=== PATIENT | female | born 1975 | race Caucasian/White ===

== ENCOUNTER → 2016-05-19 | Outpatient (CLI) | payer OTHER ==
[2016-05-19 14:30] LABS: MEAN CORPUSCULAR HEMOGLOBIN 27.8 pg (27.0-33.0); MEAN CORPUSCULAR HGB CONC 34.2 g/dl (32.0-36.5); MEAN CORPUSCULAR VOLUME 81.4 fl (80.0-96.0); WHITE BLOOD COUNT 5.8 K/mm3 (4.0-10.0)
[2016-05-19 14:58] LABS: ALBUMIN 3.4 GM/DL (3.2-5.2); ALKALINE PHOSPHATASE 92 U/L (45-117); ALT/SGPT 19 U/L (12-78); ANION GAP 9 MEQ/L (8-16); AST/SGOT 11 U/L (15-37); BILIRUBIN,TOTAL 0.4 MG/DL (0.2-1.0); BLOOD UREA NITROGEN 12 MG/DL (7-18); CALCIUM LEVEL 8.3 MG/DL (8.5-10.1); CARBON DIOXIDE LEVEL 27 MEQ/L (21-32); CHLORIDE LEVEL 105 MEQ/L (98-107); CHOLESTEROL LEVEL 185 MG/DL (<200); CREATININE FOR GFR 0.65 MG/DL (0.55-1.02); GLOMERULAR FILTRATION RATE > 60.0 (>60); GLUCOSE, FASTING 85 MG/DL (70-105); POTASSIUM SERUM 4.3 MEQ/L (3.5-5.1); SODIUM LEVEL 141 MEQ/L (136-145); TOTAL PROTEIN 6.8 GM/DL (6.4-8.2); TRIGLYCERIDES LEVEL 112 MG/DL (<150)
== END ==
LOC: M LAB 12:45
PROVIDERS: ATTEND Nurse Practitioner Family
DX: Z86.2 Personal history of diseases of the blood and blood-forming organs and certain disorders involving the immune mechanism (principal); E88.9 Metabolic disorder, unspecified; Z13.220 Encounter for screening for lipoid disorders; R53.81 Other malaise

== ENCOUNTER 2016-06-13 00:16 | Emergency (ER) | payer OTHER ==
[2016-06-13] MEDS ORDERED: ERYTHROMYCIN OPHTH OINT As Ordered ONE (00:38)
[2016-06-13] MEDS ORDERED: AUGMENTIN 875 MG TAB As Ordered ONE (00:38)
--- NOTE | 2016-06-13 00:46 | EDDOCDS ---
Physician Documentation [facility] Name: Fabiana Thomas Age: 40 yrs Sex: Female : 1975 Arrival Date: 06/13/2016 Time: 00:16 Bed Triage 1 Private MD: Disposition: 06/13/16 00:37 Discharged to Home/Self Care. Impression: Unspecified acute conjunctivitis, bilateral. - Condition is Stable. - Discharge Instructions: Bacterial Conjunctivitis, Eyedrops. - Prescriptions for Augmentin 875- 125 mg Oral Tablet - take 1 tablet by ORAL route every 12 hours for 10 days; 20 tablet. Erythromycin 5 mg/gram (0.5 %) Ophthalmic Ointment - apply 1 centimeter by OPHTHALMIC route 2-3 times daily for 7 days; 1 tube. - Medication Reconciliation, Local Pharmacy Hours, Work Release Form - 2 day form. - Follow up: Private Physician; When: Call to arrange an appointment; Reason: Recheck today's complaints, Continuance of care. - Problem is new. - Symptoms are unchanged. Historical: - Allergies: Bactrim (Vomit); Morphine (Nausea); - Home Meds: 1. ofloxacin 2 drops four times a day 2. methocarbamol 750 mg Oral tab 1 tab every 6 hours 3. prednisone 20 mg Oral tab 2 tabs once daily 4. naproxen 500 mg Oral tab 1 tab 2 times per day - PMHx: Chronic Back pain; conjunctivitis; - PSHx: eye surgery; Cesearean Section; Tubal ligation; - Social history: Smoking status: Patient states was never smoker of tobacco. No barriers to communication noted, The patient speaks fluent Maltese, Speaks appropriately for age. - Family history: Not pertinent. - : The pt / caregiver states he / she is not on anticoagulants. Home medication list is obtained from the patient. - Exposure Risk Screening:: None identified. 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 6 in. (167.64 cm) (R); Pain 6/10; 00:21 Body Mass Index 42.77 (120.20 kg, 167.64 cm) deisy Visual Acuity: 00:45 ; deferred by provider deisy MDM: 00:35 erythromycin Ointment 1 applic Ophthalmic once ordered. mo1 00:35 Amoxicillin-Clavulanate 875 mg 1 tabs PO once ordered. mo1 Administered Medications: 00:43 Drug: erythromycin 1 applic [erythromycin 5 mg/gram (0.5 %) eye ointment (1 applic)] deisy Route: Ophthalmic; Site: both eyes; 00:43 Drug: Amoxicillin-Clavulanate 1 tabs [amoxicillin 875 mg-potassium clavulanate 125 mg jmb tablet (1 tabs)] Route: PO; Signatures: Anil Bob PA PA mo1 Binh Zazueta RN RN deisy DAVID
--- NOTE | 2016-06-13 00:46 | EDDOCDS ---
Nurse's Notes [facility] Name: Fabiana Thomas Age: 40 yrs Sex: Female : 1975 Arrival Date: 06/13/2016 Time: 00:16 Bed Triage 1 Private MD: Diagnosis: Unspecified acute conjunctivitis, bilateral Presentation: 06/13 00:21 Presenting complaint: Patient states: Patient reports having pink eye. Patient reports jmb going to urgent care on , given eye drops that are not working. Patient reports that starting to cause swelling. Mechanism of Injury: No Mechanism of Injury. The patient denies any loss of vision. Adult Sepsis Screening: The patient does not have new or worsening altered mentation. Patient's respiratory rate is less than 22. Systolic blood pressure is greater than 100. Patient has a qSOFA score of 0- Negative Sepsis Screen. Suicide/Homicide risk assessment- the patient denies having any suicidal and/or homicidal ideations and does not present with any other emotional, behavioral or mental health complaints. Status: Patient is not a auto service mechanic or dependent. Transition of care: patient was not received from another setting of care. 00:21 Acuity: LUCRETIA Level 4 jmb 00:21 Method Of Arrival: Walkin/Carried/Asstd jmb Triage Assessment: 00:26 General: Appears in no apparent distress, Behavior is appropriate for age, cooperative. jmb Pain: Location: right eye and left eye Pain currently is 6 out of 10 on a pain scale. HIV screening NA for this visit Offered previously. Neurological: Level of Consciousness is awake, alert, obeys commands, Oriented to person, place, time, Speech is normal, Facial symmetry appears normal, Facial symmetry: tongue is midline. EENT: Eyes with exudate noted from outer aspect of conjuctiva of right eye, iris of right eye, inner aspect of conjuctiva of right eye, outer aspect of conjuctiva of left eye, iris of left eye and inner aspect of conjunctiva of left eye Sclera/Cornea are reddened in outer aspect of conjuctiva of right eye, iris of right eye, inner aspect of conjuctiva of right eye, outer aspect of conjuctiva of left eye, iris of left eye and inner aspect of conjunctiva of left eye. Respiratory: Airway is patent Respiratory effort is even, unlabored, Respiratory pattern is regular, symmetrical. Derm: Skin is pink, warm & dry. Musculoskeletal: Range of motion intact in all extremities. 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 ofloxacin 2 drops four times a day 2. methocarbamol 750 mg Oral tab 1 tab every 6 hours 3. prednisone 20 mg Oral tab 2 tabs once daily 4. naproxen 500 mg Oral tab 1 tab 2 times per day - PMHx: Chronic Back pain; conjunctivitis; - PSHx: eye surgery; Cesearean Section; Tubal ligation; - Social history: Smoking status: Patient states was never smoker of tobacco. No barriers to communication noted, The patient speaks fluent Bangladeshi, Speaks appropriately for age. - Family history: Not pertinent. - : The pt / caregiver states he / she is not on anticoagulants. Home medication list is obtained from the patient. - Exposure Risk Screening:: None identified. Screenin:43 Screening information is obtained from the patient. Fall risk: No risks identified. b Assistance ADL's: requires no assistance with activities of daily living. Abuse/DV Screen: The patient / caregiver reports he/she is: not in a situation that causes fear, pain or injury. Nutritional screening: No deficits noted. Advance Directives: Currently, there is no health care proxy. There is no active DNR order. There is no living will. There is no Power of Cooler Room Worker. home support is adequate. Assessment: 00:43 General: Patient instructed on discharge instructions. Patient asked if there were any [facility] questions regarding discharge, patient stated no. Patient signed discharge instructions. Patient discharged in stable condition. . Vital Signs: 00:21 BP 136 / 80; Pulse 75; Resp 18; Temp 98.4(O); Pulse Ox 100% on R/A; Weight 120.2 kg deisy (R); Height 5 ft. 6 in. (167.64 cm) (R); Pain 6/10; 00:21 Body Mass Index 42.77 (120.20 kg, 167.64 cm) deisy Vitals: 00:21 Log In Time: June 13, 2016 at 00:18. deisy Visual Acuity: 00:45 ; deferred by provider b ED Course: 00:18 Patient visited by Katy Fish, Reg. hs2 00:18 Patient visited by Katy Fish, Reg. hs2 00:18 Patient moved to Waiting hs2 00:23 Triage Initiated jmb 00:27 Patient moved to Triage 1 jmb 00:31 Anil Bob PA is PHCP. mo1 00:31 Vipin Mendoza DO is Attending Physician. mo1 00:34 Patient visited by Anil Bob PA. mo1 00:43 The patient / caregiver is instructed regarding the plan of care and ED course. jmb 00:43 No IV's were initiated during this patient's visit. No procedures done that require jmb assistance. Administered Medications: 00:43 Drug: erythromycin 1 applic [erythromycin 5 mg/gram (0.5 %) eye ointment (1 applic)] jmb Route: Ophthalmic; Site: both eyes; 00:43 Drug: Amoxicillin-Clavulanate 1 tabs [amoxicillin 875 mg-potassium clavulanate 125 mg jmb tablet (1 tabs)] Route: PO; Order Results: There are currently no results for this order. Outcome: 00:37 Discharge ordered by Provider. mo1 00:43 Discharge Assessment: Patient awake, alert and oriented x 3. No cognitive and/or jmb functional deficits noted. Patient verbalized understanding of disposition instructions. Patient awake and alert. obeys commands, Oriented to person, place and time. Patient verbalized understanding of disposition instructions. Patient has no functional deficits. patient administered narcotics - no. The following High Risk Discharge criteria are identified: None. Discharged to home ambulatory. Condition: stable Condition: improved. Discharge instructions given to patient, Instructed on discharge instructions, follow up and referral plans. medication usage, Demonstrated understanding of instructions, medications, Pt was receptive of discharge instructions/ teaching. Prescriptions given X 2, Work note provided to patient. No special radiology studies were completed. Property sent home with patient. 00:45 Patient left the ED. jmb Signatures: Anil Bob PA PA mo1 Binh Zazueta RN RN jmb Stanton, Hillary, Reg Reg hs2 MTDD
--- NOTE | 2016-06-15 01:47 | EDDOCDS ---
Physician Documentation [facility] Name: Fabiana Thomas Age: 40 yrs Sex: Female : 1975 Arrival Date: 06/13/2016 Time: 00:16 Bed Triage 1 Private MD: Disposition: 06/13/16 00:37 Discharged to Home/Self Care. Impression: Unspecified acute conjunctivitis, bilateral. - Condition is Stable. - Discharge Instructions: Bacterial Conjunctivitis, Eyedrops. - Prescriptions for Augmentin 875- 125 mg Oral Tablet - take 1 tablet by ORAL route every 12 hours for 10 days; 20 tablet. Erythromycin 5 mg/gram (0.5 %) Ophthalmic Ointment - apply 1 centimeter by OPHTHALMIC route 2-3 times daily for 7 days; 1 tube. - Medication Reconciliation, Local Pharmacy Hours, Work Release Form - 2 day form. - Follow up: Private Physician; When: Call to arrange an appointment; Reason: Recheck today's complaints, Continuance of care. - Problem is new. - Symptoms are unchanged. Historical: - Allergies: Bactrim (Vomit); Morphine (Nausea); - Home Meds: 1. ofloxacin 2 drops four times a day 2. methocarbamol 750 mg Oral tab 1 tab every 6 hours 3. prednisone 20 mg Oral tab 2 tabs once daily 4. naproxen 500 mg Oral tab 1 tab 2 times per day - PMHx: Chronic Back pain; conjunctivitis; - PSHx: eye surgery; Cesearean Section; Tubal ligation; - Social history: Smoking status: Patient states was never smoker of tobacco. No barriers to communication noted, The patient speaks fluent Vietnamese, Speaks appropriately for age. - Family history: Not pertinent. - : The pt / caregiver states he / she is not on anticoagulants. Home medication list is obtained from the patient. - Exposure Risk Screening:: None identified. 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 6 in. (167.64 cm) (R); Pain 6/10; 00:21 Body Mass Index 42.77 (120.20 kg, 167.64 cm) deisy Visual Acuity: 00:45 ; deferred by provider deisy MDM: 00:35 erythromycin Ointment 1 applic Ophthalmic once ordered. mo1 00:35 Amoxicillin-Clavulanate 875 mg 1 tabs PO once ordered. mo1 01:22 [facility] Payment Agreement was scanned into [employer] and attached to record. [facility] 01:22 Financial registration complete. [facility] 06/14 11:47 T-Sheet-- Draft Copy was scanned into [employer] and attached to record. gb Administered Medications: 06/13 00:43 Drug: erythromycin 1 applic [erythromycin 5 mg/gram (0.5 %) eye ointment (1 applic)] deisy Route: Ophthalmic; Site: both eyes; 00:43 Drug: Amoxicillin-Clavulanate 1 tabs [amoxicillin 875 mg-potassium clavulanate 125 mg jmb tablet (1 tabs)] Route: PO; Signatures: Aparna Reddy, Deniz Reg gb Anil Bob PA PA mo1 Binh Zazueta, PSA PSA Kenna Christopher eduardo The chart was reviewed and I authenticate all verbal orders and agree with the evaluation and treatment provided.Attachments: 01:22 [facility] Payment Agreement [facility] 06/14 11:47 T-Sheet-- Draft Copy gb Chart Complete MTDD
--- NOTE | 2016-06-15 01:47 | EDDOCDS ---
Nurse's Notes [facility] Name: Faibana Thomas Age: 40 yrs Sex: Female : 1975 Arrival Date: 06/13/2016 Time: 00:16 Bed Triage 1 Private MD: Diagnosis: Unspecified acute conjunctivitis, bilateral Presentation: 06/13 00:21 Presenting complaint: Patient states: Patient reports having pink eye. Patient reports jmb going to urgent care on , given eye drops that are not working. Patient reports that starting to cause swelling. Mechanism of Injury: No Mechanism of Injury. The patient denies any loss of vision. Adult Sepsis Screening: The patient does not have new or worsening altered mentation. Patient's respiratory rate is less than 22. Systolic blood pressure is greater than 100. Patient has a qSOFA score of 0- Negative Sepsis Screen. Suicide/Homicide risk assessment- the patient denies having any suicidal and/or homicidal ideations and does not present with any other emotional, behavioral or mental health complaints. Status: Patient is not a front services agent or dependent. Transition of care: patient was not received from another setting of care. 00:21 Acuity: LUCRETIA Level 4 jmb 00:21 Method Of Arrival: Walkin/Carried/Asstd jmb Triage Assessment: 00:26 General: Appears in no apparent distress, Behavior is appropriate for age, cooperative. jmb Pain: Location: right eye and left eye Pain currently is 6 out of 10 on a pain scale. HIV screening NA for this visit Offered previously. Neurological: Level of Consciousness is awake, alert, obeys commands, Oriented to person, place, time, Speech is normal, Facial symmetry appears normal, Facial symmetry: tongue is midline. EENT: Eyes with exudate noted from outer aspect of conjuctiva of right eye, iris of right eye, inner aspect of conjuctiva of right eye, outer aspect of conjuctiva of left eye, iris of left eye and inner aspect of conjunctiva of left eye Sclera/Cornea are reddened in outer aspect of conjuctiva of right eye, iris of right eye, inner aspect of conjuctiva of right eye, outer aspect of conjuctiva of left eye, iris of left eye and inner aspect of conjunctiva of left eye. Respiratory: Airway is patent Respiratory effort is even, unlabored, Respiratory pattern is regular, symmetrical. Derm: Skin is pink, warm & dry. Musculoskeletal: Range of motion intact in all extremities. 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 ofloxacin 2 drops four times a day 2. methocarbamol 750 mg Oral tab 1 tab every 6 hours 3. prednisone 20 mg Oral tab 2 tabs once daily 4. naproxen 500 mg Oral tab 1 tab 2 times per day - PMHx: Chronic Back pain; conjunctivitis; - PSHx: eye surgery; Cesearean Section; Tubal ligation; - Social history: Smoking status: Patient states was never smoker of tobacco. No barriers to communication noted, The patient speaks fluent Latvian, Speaks appropriately for age. - Family history: Not pertinent. - : The pt / caregiver states he / she is not on anticoagulants. Home medication list is obtained from the patient. - Exposure Risk Screening:: None identified. Screenin:43 Screening information is obtained from the patient. Fall risk: No risks identified. b Assistance ADL's: requires no assistance with activities of daily living. Abuse/DV Screen: The patient / caregiver reports he/she is: not in a situation that causes fear, pain or injury. Nutritional screening: No deficits noted. Advance Directives: Currently, there is no health care proxy. There is no active DNR order. There is no living will. There is no Power of County Historian. home support is adequate. Assessment: 00:43 General: Patient instructed on discharge instructions. Patient asked if there were any [facility] questions regarding discharge, patient stated no. Patient signed discharge instructions. Patient discharged in stable condition. . Vital Signs: 00:21 BP 136 / 80; Pulse 75; Resp 18; Temp 98.4(O); Pulse Ox 100% on R/A; Weight 120.2 kg deisy (R); Height 5 ft. 6 in. (167.64 cm) (R); Pain 6/10; 00:21 Body Mass Index 42.77 (120.20 kg, 167.64 cm) deisy Vitals: 00:21 Log In Time: June 13, 2016 at 00:18. deisy Visual Acuity: 00:45 ; deferred by provider jmb ED Course: 00:18 Patient visited by Katy Fish, Reg. hs2 00:18 Patient visited by Katy Fish, Reg. hs2 00:18 Patient moved to Waiting hs2 00:23 Triage Initiated jmb 00:27 Patient moved to Triage 1 jmb 00:31 Anil Bob PA is PHCP. mo1 00:31 Vipin Mendoza DO is Attending Physician. mo1 00:34 Patient visited by Anil Bob PA. mo1 00:43 The patient / caregiver is instructed regarding the plan of care and ED course. jmb 00:43 No IV's were initiated during this patient's visit. No procedures done that require jmb assistance. 01:22 [facility] Payment Agreement was scanned into [employer] and attached to record. [facility] 01:24 Patient name changed from Fabiana\S\\S\Ap-[place]\S\ to Fabiana\S\ \S\Ap-[place]ie. EDMS 06/14 11:47 T-Sheet-- Draft Copy was scanned into [employer] and attached to record. gb Administered Medications: 06/13 00:43 Drug: erythromycin 1 applic [erythromycin 5 mg/gram (0.5 %) eye ointment (1 applic)] jmb Route: Ophthalmic; Site: both eyes; 00:43 Drug: Amoxicillin-Clavulanate 1 tabs [amoxicillin 875 mg-potassium clavulanate 125 mg jmb tablet (1 tabs)] Route: PO; Order Results: There are currently no results for this order. Outcome: 00:37 Discharge ordered by Provider. mo1 00:43 Discharge Assessment: Patient awake, alert and oriented x 3. No cognitive and/or jmb functional deficits noted. Patient verbalized understanding of disposition instructions. Patient awake and alert. obeys commands, Oriented to person, place and time. Patient verbalized understanding of disposition instructions. Patient has no functional deficits. patient administered narcotics - no. The following High Risk Discharge criteria are identified: None. Discharged to home ambulatory. Condition: stable Condition: improved. Discharge instructions given to patient, Instructed on discharge instructions, follow up and referral plans. medication usage, Demonstrated understanding of instructions, medications, Pt was receptive of discharge instructions/ teaching. Prescriptions given X 2, Work note provided to patient. No special radiology studies were completed. Property sent home with patient. 00:45 Patient left the ED. deisy Signatures: Dispatcher [employer] EDMS Aparna Reddy, Reg Reg gb Anil Bob PA PA mo1 Binh Zazueta, PSA PSA Kenna Christopher Hillary, Reg Reg hs2 Chart Complete MTDD
--- NOTE | 2016-06-15 01:47 | EDDOCDS ---
Physician Documentation [facility] Name: Fabiana Thomas Age: 40 yrs Sex: Female : 1975 Arrival Date: 06/13/2016 Time: 00:16 Bed Triage 1 Private MD: Disposition: 06/13/16 00:37 Discharged to Home/Self Care. Impression: Unspecified acute conjunctivitis, bilateral. - Condition is Stable. - Discharge Instructions: Bacterial Conjunctivitis, Eyedrops. - Prescriptions for Augmentin 875- 125 mg Oral Tablet - take 1 tablet by ORAL route every 12 hours for 10 days; 20 tablet. Erythromycin 5 mg/gram (0.5 %) Ophthalmic Ointment - apply 1 centimeter by OPHTHALMIC route 2-3 times daily for 7 days; 1 tube. - Medication Reconciliation, Local Pharmacy Hours, Work Release Form - 2 day form. - Follow up: Private Physician; When: Call to arrange an appointment; Reason: Recheck today's complaints, Continuance of care. - Problem is new. - Symptoms are unchanged. Historical: - Allergies: Bactrim (Vomit); Morphine (Nausea); - Home Meds: 1. ofloxacin 2 drops four times a day 2. methocarbamol 750 mg Oral tab 1 tab every 6 hours 3. prednisone 20 mg Oral tab 2 tabs once daily 4. naproxen 500 mg Oral tab 1 tab 2 times per day - PMHx: Chronic Back pain; conjunctivitis; - PSHx: eye surgery; Cesearean Section; Tubal ligation; - Social history: Smoking status: Patient states was never smoker of tobacco. No barriers to communication noted, The patient speaks fluent [place], Speaks appropriately for age. - Family history: Not pertinent. - : The pt / caregiver states he / she is not on anticoagulants. Home medication list is obtained from the patient. - Exposure Risk Screening:: None identified. 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 6 in. (167.64 cm) (R); Pain 6/10; 00:21 Body Mass Index 42.77 (120.20 kg, 167.64 cm) deisy Visual Acuity: 00:45 ; deferred by provider deisy MDM: 00:35 erythromycin Ointment 1 applic Ophthalmic once ordered. mo1 00:35 Amoxicillin-Clavulanate 875 mg 1 tabs PO once ordered. mo1 01:22 [facility] Payment Agreement was scanned into [employer] and attached to record. [facility] 01:22 Financial registration complete. [facility] 06/14 11:47 T-Sheet-- Draft Copy was scanned into [employer] and attached to record. gb Administered Medications: 06/13 00:43 Drug: erythromycin 1 applic [erythromycin 5 mg/gram (0.5 %) eye ointment (1 applic)] deisy Route: Ophthalmic; Site: both eyes; 00:43 Drug: Amoxicillin-Clavulanate 1 tabs [amoxicillin 875 mg-potassium clavulanate 125 mg jmb tablet (1 tabs)] Route: PO; Signatures: Aparna Reddy, Deniz Reg gb Anil Bob PA PA mo1 Binh Zazueta, PSA PSA Kenna Christopher eduardo The chart was reviewed and I authenticate all verbal orders and agree with the evaluation and treatment provided.Attachments: 01:22 [facility] Payment Agreement [facility] 06/14 11:47 T-Sheet-- Draft Copy gb Chart Complete MTDD
== END 2016-06-13 00:45 | disposition home or self-care (01) ==
LOC: M ED 00:16
DX: H10.023 Other mucopurulent conjunctivitis, bilateral (principal); G89.29 Other chronic pain; M54.9 Dorsalgia, unspecified; Z79.899 Other long term (current) drug therapy; Z79.52 Long term (current) use of systemic steroids; Z79.1 Long term (current) use of non-steroidal anti-inflammatories (NSAID); Z88.2 Allergy status to sulfonamides; Z88.5 Allergy status to narcotic agent

== ENCOUNTER → 2016-06-15 | Outpatient (CLI) | payer OTHER ==
--- NOTE | 2016-06-15 16:20 | REP ---
SACRUM AND COCCYX, THREE VIEWS: HISTORY: Pain. There is no acute fracture or dislocation. The joint spaces are normal in appearance. IMPRESSION: There is no acute fracture or dislocation. Signed by Baldev Avilez MD 06/15/2016 04:23 P
== END ==
LOC: M LRY 15:37
PROVIDERS: ATTEND Nurse Practitioner Family
DX: M53.3 Sacrococcygeal disorders, not elsewhere classified (principal)

== ENCOUNTER → 2016-07-23 | Outpatient (CLI) | payer OTHER | LOC: M LRY 13:32 | PROVIDERS: ATTEND Nurse Practitioner Family | DX: E55.9 Vitamin D deficiency, unspecified (principal) ==

== ENCOUNTER → 2016-08-05 | Outpatient (CLI) | payer OTHER ==
[2016-08-05 19:50] LABS: ANION GAP 4 MEQ/L (8-16); BLOOD UREA NITROGEN 12 MG/DL (7-18); CALCIUM LEVEL 8.3 MG/DL (8.5-10.1); CARBON DIOXIDE LEVEL 28 MEQ/L (21-32); CHLORIDE LEVEL 107 MEQ/L (98-107); CREATININE FOR GFR 0.69 MG/DL (0.55-1.02); GLOMERULAR FILTRATION RATE > 60.0 (>60); GLUCOSE, FASTING 108 MG/DL (70-105); POTASSIUM SERUM 4.2 MEQ/L (3.5-5.1); SODIUM LEVEL 139 MEQ/L (136-145)
[2016-08-08 14:37] LABS: Lyme Disease IgG/IgM Antibodie <0.91 ISR (0.00-0.90); Lyme Disease IgM Ab Quantitati <0.80 index (0.00-0.79)
== END ==
LOC: M LRY 15:32
PROVIDERS: ATTEND Nurse Practitioner Family
DX: M25.50 Pain in unspecified joint (principal); R53.81 Other malaise

== ENCOUNTER → 2016-08-05 | Outpatient (CLI) | payer OTHER ==
--- NOTE | 2016-08-05 17:05 | REP ---
RIGHT KNEE SERIES: Five views of the right knee are performed. There is no acute fracture or dislocation. There is mild narrowing and subchondral sclerosis at the patellofemoral joint. IMPRESSION: Mild degenerative changes lateral patellofemoral joint. No other significant finding. No acute fracture. Signed by Royer العراقي MD 08/05/2016 05:41 P
== END ==
LOC: M LRY 15:56
PROVIDERS: ATTEND Nurse Practitioner Family
DX: M25.561 Pain in right knee (principal)

== ENCOUNTER 2017-01-13 10:36 | Outpatient (CLI) | payer OTHER ==
[~2017-01-13] VITALS: Ht 168.9 cm; Wt 120.2 kg
[~2017-01-13 10:36] MED LIST: VITA-110 PO; [UNRECOGNIZED DRUG - CODE] PO
[2017-01-13] MEDS ORDERED: NS 1,000 ML IV ONE (10:45)
[2017-01-13] MEDS ORDERED: LIDOCAINE 2% INJ 100 MG/5 ML SDV (FOR ANES.) As Ordered ONE (12:10)
[2017-01-13] MEDS ORDERED: PROPOFOL 200 MG/20 ML VIAL As Ordered ONE ×2 (12:10→12:38)
[2017-01-13] MEDS ORDERED: fentaNYL 100 MCG/2 ML INJECTION (J3010) As Ordered ONE (12:11)
--- NOTE | 2017-01-13 13:00 | ROOR ---
Patient Name: Fbaiana Dugan Procedure Date: 01/13/2017 12:11 PM Date of : 1975 Age: 41 Room: [facility] Gender: Female Note Status: Finalized Procedure: Upper GI endoscopy Indications: Functional Dyspepsia, Suspected celiac disease Providers: Juan Rose MD Referring MD: Ale CHACON NP Requesting Provider: Medicines: Monitored Anesthesia Care Complications: No immediate complications. Procedure: Pre-Anesthesia Assessment: - Prior to the procedure, a History and Physical was performed, and patient medications and allergies were reviewed. The patient is competent. The risks and benefits of the procedure and the sedation options and risks were discussed with the patient. All questions were answered and informed consent was obtained. Patient identification and proposed procedure were verified by the physician, the nurse and the rotary pump operator in the procedure room. Mental Status Examination: alert and oriented. Airway Examination: normal oropharyngeal airway and neck mobility. Respiratory Examination: clear to auscultation. CV Examination: normal. Prophylactic Antibiotics: The patient does not require prophylactic antibiotics. Prior Anticoagulants: The patient has taken no previous anticoagulant or antiplatelet agents. ASA Grade Assessment: III - A patient with severe systemic disease. After reviewing the risks and benefits, the patient was deemed in satisfactory condition to undergo the procedure. The anesthesia plan was to use monitored anesthesia care (MAC). Immediately prior to administration of medications, the patient was re-assessed for adequacy to receive sedatives. The heart rate, respiratory rate, oxygen saturations, blood pressure, adequacy of pulmonary ventilation, and response to care were monitored throughout the procedure. The physical status of the patient was re-assessed after the procedure. The Endoscope was introduced through the mouth, and advanced to the second part of duodenum. The upper GI endoscopy was accomplished without difficulty. The patient tolerated the procedure well. Findings: The examined esophagus was normal. Diffuse moderate inflammation characterized by erosions, granularity and linear erosions was found in the gastric antrum. Biopsies were taken with a cold forceps for histology. Verification of patient identification for the specimen was done by the physician and nurse using the patient's name, date and medical record number. Estimated blood loss was minimal. Diffuse moderate inflammation characterized by congestion (edema), erythema and granularity was found in the duodenal bulb. No gross lesions were noted in the second portion of the duodenum. Biopsies for histology were taken with a cold forceps for evaluation of celiac disease. Impression: - Normal esophagus. - Gastritis. Biopsied. - Duodenitis. - No gross lesions in the second portion of the duodenum. Biopsied. Recommendation: - Patient has a contact number available for emergencies. The signs and symptoms of potential delayed complications were discussed with the patient. Return to normal activities tomorrow. Written discharge instructions were provided to the patient. - Resume previous diet. - Continue present medications. - Use a proton pump inhibitor PO daily for 8 weeks. - Return to GI clinic as previously scheduled 01/27/2017 at 11:00 AM. - Return to primary care physician. Juan Rose MD Juan Rose MD 01/13/2017 1:00:02 PM This report has been signed electronically. Number of Addenda: 0 Note Initiated On: 01/13/2017 12:11 PM Estimated Blood Loss: Estimated blood loss was minimal.
[2017-01-13 13:04] VITALS: BP 109/64
--- NOTE | 2017-01-13 13:07 | ROOR ---
Patient Name: Fabiana Dugan Procedure Date: 01/13/2017 12:13 PM Date of : 1975 Age: 41 Room: [facility] Gender: Female Note Status: Finalized Procedure: Colonoscopy Indications: Colon cancer screening in patient at increased risk: Family history of colorectal cancer in multiple 2nd degree relatives Providers: Juan Rose MD Referring MD: Ale CHACON NP Requesting Provider: Medicines: Monitored Anesthesia Care Complications: No immediate complications. Procedure: Pre-Anesthesia Assessment: - Prior to the procedure, a History and Physical was performed, and patient medications and allergies were reviewed. The patient is competent. The risks and benefits of the procedure and the sedation options and risks were discussed with the patient. All questions were answered and informed consent was obtained. Patient identification and proposed procedure were verified by the physician, the nurse and the meter mechanic in the procedure room. Mental Status Examination: normal. Airway Examination: normal oropharyngeal airway and neck mobility. Respiratory Examination: clear to auscultation. CV Examination: normal. Prophylactic Antibiotics: The patient does not require prophylactic antibiotics. Prior Anticoagulants: The patient has taken no previous anticoagulant or antiplatelet agents. ASA Grade Assessment: III - A patient with severe systemic disease. After reviewing the risks and benefits, the patient was deemed in satisfactory condition to undergo the procedure. The anesthesia plan was to use monitored anesthesia care (MAC). Immediately prior to administration of medications, the patient was re-assessed for adequacy to receive sedatives. The heart rate, respiratory rate, oxygen saturations, blood pressure, adequacy of pulmonary ventilation, and response to care were monitored throughout the procedure. The physical status of the patient was re-assessed after the procedure. The Colonoscope was introduced through the anus and advanced to the cecum, identified by appendiceal orifice and ileocecal valve. The colonoscopy was performed without difficulty. The patient tolerated the procedure well. The quality of the bowel preparation was good. The ileocecal valve, appendiceal orifice, and rectum were photographed. The quality of the bowel preparation was good. The ileocecal valve, appendiceal orifice, and rectum were photographed. Scope insertion time was 3 minutes. Scope withdrawal time was 12 minutes. The total duration of the procedure was 20 minutes. Findings: The perianal and digital rectal examinations were normal. A 3 mm polyp was found in the transverse colon. The polyp was sessile. The polyp was removed with a cold biopsy forceps. Resection and retrieval were complete. Verification of patient identification for the specimen was done by the physician and nurse using the patient's name, date and medical record number. Estimated blood loss was minimal. A 15 mm polyp was found in the transverse colon. The polyp was carpet-like and flat. Area was successfully injected with 3 mL saline for a lift polypectomy. The polyp was removed with a hot snare. Resection and retrieval were complete. Area was tattooed with an injection of dye. The retroflexed view of the distal rectum and anal verge was normal and showed no anal or rectal abnormalities. Impression: - One 3 mm polyp in the transverse colon, removed with a cold biopsy forceps. Resected and retrieved. - One 15 mm polyp in the transverse colon, removed with a hot snare. Resected and retrieved. Injected. Tattooed. Recommendation: - Patient has a contact number available for emergencies. The signs and symptoms of potential delayed complications were discussed with the patient. Return to normal activities tomorrow. Written discharge instructions were provided to the patient. - Resume previous diet. - Continue present medications. - Await pathology results. - Repeat colonoscopy in 1 year for surveillance after piecemeal polypectomy and for surveillance based on pathology results. - Return to GI clinic as previously scheduled 01/27/2017 at 8:30 AM. - Return to primary care physician. Juan Rose MD Juan Rose MD 01/13/2017 1:06:33 PM This report has been signed electronically. Number of Addenda: 0 Note Initiated On: 01/13/2017 12:13 PM Estimated Blood Loss: Estimated blood loss was minimal.
== END 2017-01-13 13:35 | disposition home or self-care (01) ==
LOC: M OPP 10:36
PROVIDERS: ATTEND Internal Medicine Gastroenterology
DX: Z12.11 Encounter for screening for malignant neoplasm of colon (principal); Z80.0 Family history of malignant neoplasm of digestive organs; D12.3 Benign neoplasm of transverse colon; K90.0 Celiac disease; K30 Functional dyspepsia; K29.80 Duodenitis without bleeding; K29.70 Gastritis, unspecified, without bleeding; R19.4 Change in bowel habit; R06.02 Shortness of breath; M19.90 Unspecified osteoarthritis, unspecified site; M51.9 Unspecified thoracic, thoracolumbar and lumbosacral intervertebral disc disorder; G43.909 Migraine, unspecified, not intractable, without status migrainosus; G47.30 Sleep apnea, unspecified; Z88.5 Allergy status to narcotic agent; Z88.2 Allergy status to sulfonamides; Z79.899 Other long term (current) drug therapy
CPT/HCPCS: 43239; 45380; 45381; 45385; 88305; J3010

== ENCOUNTER 2017-01-19 21:11 | Emergency (ER) | payer OTHER ==
[~2017-01-19] VITALS: Ht 167.6 cm; Wt 124.1 kg
[2017-01-19] MEDS ORDERED: ZOFR4TAB3 PO (23:34)
[2017-01-19 23:39] VITALS: BP 146/72
[2017-01-19] MEDS ORDERED: ONDANSETRON 4 MG ORAL DISINTEGRATING TAB (S0181) PO ONE (23:45)
== END 2017-01-19 23:42 | disposition home or self-care (01) ==
LOC: M ED 21:11
DX: K52.9 Noninfective gastroenteritis and colitis, unspecified (principal)

== ENCOUNTER → 2017-04-10 | Outpatient (REF) | payer OTHER ==
[~2017-04-10] MED LIST changes: +ZOFR4TAB3 PO
== END ==
LOC: M SFHCLERA 11:33
PROVIDERS: ATTEND Nurse Practitioner Family
DX: M54.5 Low back pain (principal)

== ENCOUNTER → 2017-09-13 | Outpatient (REF) | payer OTHER | LOC: M SFHCLERA 16:48 | DX: J02.9 Acute pharyngitis, unspecified (principal) ==

== ENCOUNTER 2017-09-16 16:50 | Emergency (ER) | payer OTHER ==
[2017-09-16] MEDS: NS 1,000 ML IV (17:37)
[2017-09-16] MEDS: diphenhydrAMINE INJ 50MG/ML VIAL (J1200) IV (17:38)
[2017-09-16] MEDS: METOCLOPRAMIDE INJ 10MG/2ML VIAL (J2765) IV (17:38)
[2017-09-16] MEDS: KETOROLAC 30 MG/ML VIAL (J1885) IV (17:38)
== END 2017-09-16 19:00 | disposition home or self-care (01) ==
LOC: M ED 16:50
DX: G43.909 Migraine, unspecified, not intractable, without status migrainosus (principal); Z87.891 Personal history of nicotine dependence; Z79.899 Other long term (current) drug therapy; Z88.5 Allergy status to narcotic agent; Z88.1 Allergy status to other antibiotic agents
CPT/HCPCS: J1200

== ENCOUNTER → 2017-10-04 | Outpatient (REF) | payer OTHER | LOC: M SFHCLERA 11:48 | DX: J02.9 Acute pharyngitis, unspecified (principal) ==

== ENCOUNTER 2017-10-15 20:28 | Emergency (ER) | payer OTHER ==
[2017-10-15] MEDS: dexameTHASONE 4 MG/ML 1ML VIAL (J1100) PO (22:41)
[2017-10-15] MEDS: BENZONATATE 100 MG CAP PO (22:41)
[2017-10-15] MEDS: IPRATROPIUM 0.5MG/ALBUTEROL 2.5MG INH SOL UD 3ML (DUONEB)(J7620) NEB (23:01)
== END 2017-10-15 23:39 | disposition home or self-care (01) ==
LOC: M ED 20:28
DX: J06.9 Acute upper respiratory infection, unspecified (principal); Z88.5 Allergy status to narcotic agent; Z88.2 Allergy status to sulfonamides
CPT/HCPCS: J1100

== ENCOUNTER 2017-11-25 19:08 | Emergency (ER) | payer OTHER ==
[2017-11-25 19:49] LABS: KETONE, URINE AUTO RFX TRACE mg/dL (NEGATIVE); LEUKOCYTE ESTERASE UR AUTO RFX NEGATIVE (NEGATIVE); MUCUS, URINE RFX SMALL (NEGATIVE); NITRITE, URINE AUTO RFX NEGATIVE (NEGATIVE); RBC, URINE AUTO RFX 2 /HPF (0-3); SPECIFIC GRAVITY UR AUTO RFX 1.031 (1.002-1.035); SQUAM EPITHELIAL CELL UR AURFX 1 /HPF (0-6); WBC, URINE AUTO RFX 2 /HPF (0-3)
[2017-11-25] MEDS: NS 1,000 ML IV (20:15)
[2017-11-25 21:20] LABS: BASO % 0.4 % (0.0-1.0); EOS # 0.1 10^3/uL (0.0-0.50); EOS % 2.3 % (0.0-3.0); HEMOGLOBIN 12.4 g/dl (12.0-15.5); IMMATURE GRANULOCYTE % 0.2 % (0-3.0); LYMPH # 1.6 10^3/uL (1.5-4.5); LYMPH % 29.1 % (24.0-44.0); MEAN CORPUSCULAR HEMOGLOBIN 26.4 pg (27.0-33.0); MEAN CORPUSCULAR HGB CONC 32.6 g/dl (32.0-36.5); MEAN CORPUSCULAR VOLUME 80.9 fl (80.0-96.0); MONO # 0.6 10^3/uL (0.0-0.8); MONO % 11.5 % (0.0-5.0); NEUTROPHILS # 3.2 10^3/uL (1.8-7.7); NEUTROPHILS % 56.5 % (36.0-66.0); PLATELET COUNT, AUTOMATED 223 10^3/uL (150-450); RED CELL DISTRIBUTION WIDTH 13.3 % (11.5-14.5); WHITE BLOOD COUNT 5.6 10^3/uL (4.0-10.0)
[2017-11-25 21:31] LABS: INR 0.96; PROTHROMBIN TIME 12.9 SECONDS (12.1-14.4)
[2017-11-25 21:32] LABS: PARTIAL THROMBOPLASTIN TIME 33.1 SECONDS (25.4-37.6)
[2017-11-25] MEDS: TOBRADEX OPHTH SUSP 2.5 ML OS (21:43)
[2017-11-25 21:45] LABS: AMMONIA 14 uMOL/L (<32)
[2017-11-25 21:46] LABS: ALBUMIN 3.2 GM/DL (3.2-5.2); ALBUMIN/GLOBULIN RATIO 0.91 (1.00-1.93); ALKALINE PHOSPHATASE 99 U/L (45-117); ALT/SGPT 17 U/L (12-78); ANION GAP 7 MEQ/L (8-16); AST/SGOT 11 U/L (7-37); BILIRUBIN,DIRECT < 0.1 MG/DL (0.0-0.2); BILIRUBIN,TOTAL 0.2 MG/DL (0.2-1.0); BLOOD UREA NITROGEN 15 MG/DL (7-18); CALCIUM LEVEL 7.8 MG/DL (8.5-10.1); CARBON DIOXIDE LEVEL 26 MEQ/L (21-32); CHLORIDE LEVEL 110 MEQ/L (98-107); CREATININE FOR GFR 0.71 MG/DL (0.55-1.30); GLOMERULAR FILTRATION RATE > 60.0 (>58); GLUCOSE, FASTING 93 MG/DL (70-100); LIPASE 87 U/L (73-393); POTASSIUM SERUM 3.8 MEQ/L (3.5-5.1); SODIUM LEVEL 143 MEQ/L (136-145); TOTAL PROTEIN 6.7 GM/DL (6.4-8.2)
[2017-11-25 21:53] LABS: CONTROL LINE HCG INT CTR LINE PRESENT; HCG, SERUM QUALITATIVE NEGATIVE (NEGATIVE)
== END 2017-11-25 23:19 | disposition home or self-care (01) ==
LOC: M ED 19:08
DX: K80.20 Calculus of gallbladder without cholecystitis without obstruction (principal); K21.9 Gastro-esophageal reflux disease without esophagitis; Z88.2 Allergy status to sulfonamides; Z88.5 Allergy status to narcotic agent; Z88.8 Allergy status to other drugs, medicaments and biological substances
CPT/HCPCS: 76705

== ENCOUNTER 2017-11-29 10:00 | Emergency (ER) | payer OTHER ==
[2017-11-29 10:56] LABS: BASO % 0.4 % (0.0-1.0); EOS # 0.1 10^3/uL (0.0-0.50); EOS % 2.6 % (0.0-3.0); HEMATOCRIT 39.3 % (36.0-47.0); IMMATURE GRANULOCYTE % 0.6 % (0-3.0); LYMPH # 1.5 10^3/uL (1.5-4.5); LYMPH % 27.9 % (24.0-44.0); MEAN CORPUSCULAR HEMOGLOBIN 26.6 pg (27.0-33.0); MEAN CORPUSCULAR HGB CONC 33.1 g/dl (32.0-36.5); MEAN CORPUSCULAR VOLUME 80.4 fl (80.0-96.0); MONO # 0.5 10^3/uL (0.0-0.8); MONO % 8.8 % (0.0-5.0); NEUTROPHILS # 3.3 10^3/uL (1.8-7.7); NEUTROPHILS % 59.7 % (36.0-66.0); PLATELET COUNT, AUTOMATED 238 10^3/uL (150-450); RED BLOOD COUNT 4.89 10^6/uL (4.00-5.40); RED CELL DISTRIBUTION WIDTH 13.2 % (11.5-14.5); WHITE BLOOD COUNT 5.4 10^3/uL (4.0-10.0)
[2017-11-29] MEDS: NS 1,000 ML IV (11:01)
[2017-11-29] MEDS: ONDANSETRON 4MG/2ML VIAL (J2405) IV (11:01)
[2017-11-29 11:03] LABS: ALBUMIN 3.3 GM/DL (3.2-5.2); ALKALINE PHOSPHATASE 87 U/L (45-117); ALT/SGPT 19 U/L (12-78); AMYLASE 25 U/L (25-115); ANION GAP 9 MEQ/L (8-16); AST/SGOT 14 U/L (7-37); BILIRUBIN,DIRECT < 0.1 MG/DL (0.0-0.2); BILIRUBIN,TOTAL 0.3 MG/DL (0.2-1.0); BLOOD UREA NITROGEN 9 MG/DL (7-18); CALCIUM LEVEL 8.2 MG/DL (8.5-10.1); CARBON DIOXIDE LEVEL 25 MEQ/L (21-32); CHLORIDE LEVEL 109 MEQ/L (98-107); CREATININE FOR GFR 0.78 MG/DL (0.55-1.30); GLOMERULAR FILTRATION RATE > 60.0 (>58); GLUCOSE, FASTING 100 MG/DL (70-100); LIPASE 87 U/L (73-393); SODIUM LEVEL 143 MEQ/L (136-145); TOTAL PROTEIN 7.4 GM/DL (6.4-8.2)
[2017-11-29 11:10] LABS: INR 0.94; PROTHROMBIN TIME 12.7 SECONDS (12.1-14.4)
[2017-11-29 11:11] LABS: PARTIAL THROMBOPLASTIN TIME 33.5 SECONDS (25.4-37.6)
== END 2017-11-29 11:46 | disposition home or self-care (01) ==
LOC: M ED 10:00
DX: K80.50 Calculus of bile duct without cholangitis or cholecystitis without obstruction (principal); K64.4 Residual hemorrhoidal skin tags; K92.2 Gastrointestinal hemorrhage, unspecified; R11.0 Nausea; Z79.899 Other long term (current) drug therapy; Z88.5 Allergy status to narcotic agent; Z88.1 Allergy status to other antibiotic agents
CPT/HCPCS: J2405

== ENCOUNTER 2017-12-15 11:01 | Day surgery (SDC) | payer OTHER ==
[2017-12-15] MEDS: NS 1,000 ML IV (06:00)
[~2017-12-15 11:01] MED LIST changes: +PROPOFOL 200 MG/20 ML VIAL As Ordered; -VITA-110 PO; -ZOFR4TAB3 PO; -[UNRECOGNIZED DRUG - CODE] PO
[2017-12-15] MEDS ORDERED: PROPOFOL 200 MG/20 ML VIAL As Ordered ×2 (11:37→12:48)
== END 2017-12-15 14:03 | disposition home or self-care (01) ==
LOC: M OPP 14:03
DX: K62.5 Hemorrhage of anus and rectum (principal); Z86.010 Personal history of colon polyps; D12.3 Benign neoplasm of transverse colon; K63.89 Other specified diseases of intestine; D12.7 Benign neoplasm of rectosigmoid junction; K64.8 Other hemorrhoids; R19.4 Change in bowel habit; M19.90 Unspecified osteoarthritis, unspecified site; M54.5 Low back pain; G43.909 Migraine, unspecified, not intractable, without status migrainosus; R06.83 Snoring; F41.9 Anxiety disorder, unspecified; Z87.19 Personal history of other diseases of the digestive system; Z88.5 Allergy status to narcotic agent; Z88.2 Allergy status to sulfonamides; Z79.899 Other long term (current) drug therapy
CPT/HCPCS: 45380

== ENCOUNTER → 2018-01-25 | Outpatient (CLI) | payer OTHER | LOC: M RAD 08:01 | DX: K80.10 Calculus of gallbladder with chronic cholecystitis without obstruction (principal); R10.11 Right upper quadrant pain; R10.2 Pelvic and perineal pain | CPT/HCPCS: A9537 ==

== ENCOUNTER 2018-02-23 05:42 | Day surgery (SDC) | payer OTHER ==
[2018-02-23] MEDS: LR 1,000 ML IV (06:22)
[2018-02-23] MEDS ORDERED: ROCURONIUM BROMIDE 50 MG/5 ML VIAL As Ordered ×2 (07:52→08:09)
[2018-02-23] MEDS ORDERED: dexameTHASONE 4 MG/ML 1ML VIAL (J1100) As Ordered (07:52)
[2018-02-23] MEDS ORDERED: fentaNYL 250 MCG/5 ML INJECTION (J3010) As Ordered (07:52)
[2018-02-23] MEDS ORDERED: LIDOCAINE 2% INJ 100 MG/5 ML SDV (FOR ANES.) As Ordered ×2 (07:52→07:54)
[2018-02-23] MEDS ORDERED: ONDANSETRON 4MG/2ML VIAL (J2405) As Ordered ×2 (07:52→09:26)
[2018-02-23] MEDS ORDERED: PROPOFOL 200 MG/20 ML VIAL As Ordered ×2 (07:52→09:04)
[2018-02-23] MEDS ORDERED: MIDAZOLAM INJ 2 MG/2 ML VIAL (J2250) As Ordered (07:52)
[2018-02-23] MEDS ORDERED: KETOROLAC 60 MG/2 ML VIAL (J1885) As Ordered (07:52)
[2018-02-23] MEDS: BUPIVACAINE HCL 0.25% 30 ML VIAL As Ordered (07:55)
[2018-02-23] MEDS ORDERED: NEOSTIGMINE 10 MG/10 ML VIAL (J2710) As Ordered (08:03)
[2018-02-23] MEDS ORDERED: GLYCOPYRROLATE INJ 0.2 MG/ML 2 ML VIAL As Ordered ×3 (08:03→08:04)
[2018-02-23] MEDS: ONDANSETRON 4MG/2ML VIAL (J2405) IV (09:32)
[2018-02-23] MEDS ORDERED: PERCOCET 5MG/325MG TAB As Ordered (09:35)
[2018-02-23] MEDS ORDERED: fentaNYL 100 MCG/2 ML INJECTION (J3010) As Ordered (09:36)
[2018-02-23] MEDS: PERCOCET 5MG/325MG TAB PO (09:38)
[2018-02-23] MEDS: fentaNYL 100 MCG/2 ML INJECTION (J3010) IV ×2 (09:40→09:45)
[2018-02-23] MEDS ORDERED: MEPERIDINE INJ 25 MG/ML VIAL (J2175) IV (10:00)
[2018-02-23] MEDS ORDERED: LR 1,000 ML IV (10:00)
[2018-02-23] MEDS ORDERED: ACETAMINOPHEN TAB 650MG DOSE (2X325MG) PO (10:15)
[2018-02-23] MEDS ORDERED: NORCO, ANEXSIA 5/325MG TABLET (HYDROcodone/ACETAMINOPHEN) PO (10:15)
[2018-02-23] MEDS ORDERED: IBUPROFEN 600 MG TAB PO (10:15)
[2018-02-23] MEDS: METOCLOPRAMIDE INJ 10MG/2ML VIAL (J2765) IV (10:46)
== END 2018-02-23 12:17 | disposition home or self-care (01) ==
LOC: M SDC 05:42
DX: K80.10 Calculus of gallbladder with chronic cholecystitis without obstruction (principal); F41.9 Anxiety disorder, unspecified; E66.01 Morbid (severe) obesity due to excess calories; R19.4 Change in bowel habit; K21.9 Gastro-esophageal reflux disease without esophagitis; M17.0 Bilateral primary osteoarthritis of knee; M72.2 Plantar fascial fibromatosis; G43.909 Migraine, unspecified, not intractable, without status migrainosus; R06.83 Snoring; T88.59XD Other complications of anesthesia, subsequent encounter; Z88.1 Allergy status to other antibiotic agents; Z88.5 Allergy status to narcotic agent; Z79.899 Other long term (current) drug therapy; Z68.41 Body mass index [BMI] 40.0-44.9, adult; Z87.42 Personal history of other diseases of the female genital tract; Z98.51 Tubal ligation status
CPT/HCPCS: 47562

== ENCOUNTER 2018-02-25 10:40 | Emergency (ER) | payer OTHER ==
[2018-02-25 11:44] LABS: BASO % 0.4 % (0.0-1.0); EOS # 0.1 10^3/uL (0.0-0.50); HEMOGLOBIN 11.7 g/dl (12.0-15.5); IMMATURE GRANULOCYTE % 0.5 % (0-3.0); LYMPH # 2.6 10^3/uL (1.5-4.5); LYMPH % 35.5 % (24.0-44.0); MEAN CORPUSCULAR HEMOGLOBIN 25.9 pg (27.0-33.0); MEAN CORPUSCULAR HGB CONC 32.5 g/dl (32.0-36.5); MEAN CORPUSCULAR VOLUME 79.6 fl (80.0-96.0); MONO # 0.6 10^3/uL (0.0-0.8); NEUTROPHILS % 54.6 % (36.0-66.0); PLATELET COUNT, AUTOMATED 259 10^3/uL (150-450); RED BLOOD COUNT 4.52 10^6/uL (4.00-5.40); RED CELL DISTRIBUTION WIDTH 13.1 % (11.5-14.5); WHITE BLOOD COUNT 7.4 10^3/uL (4.0-10.0)
[2018-02-25 11:55] LABS: ALBUMIN 3.1 GM/DL (3.2-5.2); ALBUMIN/GLOBULIN RATIO 0.91 (1.00-1.93); ALKALINE PHOSPHATASE 76 U/L (45-117); ALT/SGPT 18 U/L (12-78); AMYLASE 26 U/L (25-115); ANION GAP 9 MEQ/L (8-16); AST/SGOT 14 U/L (7-37); BILIRUBIN,DIRECT < 0.1 MG/DL (0.0-0.2); BILIRUBIN,TOTAL 0.3 MG/DL (0.2-1.0); BLOOD UREA NITROGEN 13 MG/DL (7-18); CALCIUM LEVEL 8.1 MG/DL (8.5-10.1); CARBON DIOXIDE LEVEL 26 MEQ/L (21-32); CHLORIDE LEVEL 106 MEQ/L (98-107); CREATININE FOR GFR 0.92 MG/DL (0.55-1.30); GLOMERULAR FILTRATION RATE > 60.0 (>58); GLUCOSE, FASTING 82 MG/DL (70-100); LIPASE 58 U/L (73-393); POTASSIUM SERUM 3.8 MEQ/L (3.5-5.1); SODIUM LEVEL 141 MEQ/L (136-145); TOTAL PROTEIN 6.5 GM/DL (6.4-8.2)
[2018-02-25 11:56] LABS: INR 0.96; PROTHROMBIN TIME 12.8 SECONDS (12.1-14.4)
[2018-02-25 11:57] LABS: PARTIAL THROMBOPLASTIN TIME 29.7 SECONDS (25.4-37.6)
[2018-02-25] MEDS: METOCLOPRAMIDE INJ 10MG/2ML VIAL (J2765) IV (12:20)
[2018-02-25] MEDS: NS 1,000 ML IV (12:23)
[2018-02-25] MEDS: PROMETHAZINE 25 MG TAB PO (13:06)
== END 2018-02-25 13:48 | disposition home or self-care (01) ==
LOC: M ED 10:40
DX: G89.18 Other acute postprocedural pain (principal); R11.0 Nausea; K21.9 Gastro-esophageal reflux disease without esophagitis; Z88.5 Allergy status to narcotic agent; Z88.2 Allergy status to sulfonamides; Z79.899 Other long term (current) drug therapy
CPT/HCPCS: J2765

== ENCOUNTER → 2018-04-19 | Outpatient (REF) | payer OTHER ==
[~2018-04-19] MED LIST changes: +CBD OIL; +FAMO1TAB11; +MAGICMW MT; +NORCOTAB PO; +PANT40TA3; +PANT40TA3 PO; +PRED20TA; +PROAAER10 INH; +PROM25TA PO; -PROPOFOL 200 MG/20 ML VIAL As Ordered; +TESS100C PO; +VITA-110 PO; +VITA100067 PO; +ZOFR4TAB14 PO; +[UNRECOGNIZED DRUG - CODE] PO; +[UNRECOGNIZED DRUG - CODE] PO; +[UNRECOGNIZED DRUG - CODE] PO; +[UNRECOGNIZED DRUG - CODE] PO
== END ==
LOC: M SFHCLERA 16:21
PROVIDERS: ATTEND Nurse Practitioner Family
DX: J02.9 Acute pharyngitis, unspecified (principal)

== ENCOUNTER 2018-05-03 16:07 | Emergency (ER) | payer OTHER ==
[~2018-05-03] VITALS: Ht 167.6 cm; Wt 120.5 kg
[~2018-05-03 16:07] MED LIST changes: -CBD OIL; -PRED20TA; -PROM25TA PO; +PROM25TA12 PO
[2018-05-03] MEDS ORDERED: CBD OIL (16:15)
[2018-05-03] MEDS ORDERED: ACETAMINOPHEN TAB 650MG DOSE (2X325MG) PO ONE (16:45)
--- NOTE | 2018-05-03 16:54 | REP ---
Portable chest x-ray: AP upright view. History: Chest pain. Comparison study: October 15, 2017. Findings: EKG monitoring electrodes overlie the chest. The lungs are well inflated and clear. Pleural angles are sharp. Heart size is normal. No significant bony abnormality is seen. Pulmonary vasculature is not increased. Impression: Negative portable chest x-ray. Electronically Signed by Dev Taylor MD 05/03/2018 04:45 P
[2018-05-03] MEDS ORDERED: PRED20TA (16:56)
[2018-05-03 16:59] LABS: BASO % 0.1 % (0.0-1.0); EOS # 0.1 10^3/uL (0.0-0.50); EOS % 1.7 % (0.0-3.0); HEMATOCRIT 37.7 % (36.0-47.0); HEMOGLOBIN 12.2 g/dl (12.0-15.5); LYMPH % 27.4 % (24.0-44.0); MEAN CORPUSCULAR HEMOGLOBIN 25.5 pg (27.0-33.0); MEAN CORPUSCULAR HGB CONC 32.4 g/dl (32.0-36.5); MEAN CORPUSCULAR VOLUME 78.9 fl (80.0-96.0); MONO # 0.5 10^3/uL (0.0-0.8); MONO % 7.5 % (0.0-5.0); NEUTROPHILS # 4.5 10^3/uL (1.8-7.7); PLATELET COUNT, AUTOMATED 255 10^3/uL (150-450); RED BLOOD COUNT 4.78 10^6/uL (4.00-5.40); WHITE BLOOD COUNT 7.2 10^3/uL (4.0-10.0)
[2018-05-03 17:18] LABS: ALBUMIN 3.3 GM/DL (3.2-5.2); ALT/SGPT 17 U/L (12-78); BILIRUBIN,DIRECT < 0.1 MG/DL (0.0-0.2); BILIRUBIN,TOTAL 0.2 MG/DL (0.2-1.0); BLOOD UREA NITROGEN 14 MG/DL (7-18); CALCIUM LEVEL 7.9 MG/DL (8.5-10.1); CARBON DIOXIDE LEVEL 26 MEQ/L (21-32); CHLORIDE LEVEL 106 MEQ/L (98-107); CK-MB VALUE MASS < 1.0 NG/ML (<3.6); CPK CREATINE PHOSPHOKINASE 42 U/L (26-192); CREATININE FOR GFR 0.75 MG/DL (0.55-1.30); GLOMERULAR FILTRATION RATE > 60.0 (>58); GLUCOSE, FASTING 104 MG/DL (70-100); LIPASE 81 U/L (73-393); MB/CK RELATIVE INDEX 2.38 (< OR =4); NT-PRO BNP 28 PG/ML (<125); POTASSIUM SERUM 3.9 MEQ/L (3.5-5.1); SODIUM LEVEL 141 MEQ/L (136-145); TOTAL PROTEIN 7.1 GM/DL (6.4-8.2); TROPONIN I < 0.02 NG/ML (< 0.10)
[2018-05-03 18:40] VITALS: BP 121/75
--- NOTE | 2018-05-04 09:20 | ECGEPIP ---
Stationary ECG Study [facility] ED Test Date: 2018-05-03 Pat Name: DARREN JOHNSONOPOSEYDepartment: Room: - Gender: F Vendor Relationship Manager: [facility] : 1975 Requested By: GREGOR DAVILA Order Number: [id number] Reading MD: Roxanne Kramer Measurements Intervals [place] Rate: 65 P: 47 NC: 133 QRS: 21 QRSD: 90 T: 40 QT: 408 QTc: 427 Interpretive Statements SINUS RHYTHM LOW QRS VOLTAGE IN PRECORDIAL LEADS NO PRIOR FOR COMPARISON Electronically Signed On 05-04-2018 9:19:58 EST by Roxanne Kramer
== END 2018-05-03 18:42 | disposition home or self-care (01) ==
LOC: M ED 16:07
DX: M94.0 Chondrocostal junction syndrome [Tietze] (principal); E66.01 Morbid (severe) obesity due to excess calories; Z79.899 Other long term (current) drug therapy; Z88.5 Allergy status to narcotic agent; Z88.1 Allergy status to other antibiotic agents

== ENCOUNTER → 2018-06-06 | Outpatient (REF) | payer OTHER ==
[~2018-06-06] MED LIST changes: +CBD OIL; +PRED20TA
== END ==
LOC: M SFHCLERA 11:01
PROVIDERS: ATTEND Physician Assistant
DX: R53.81 Other malaise (principal)

== ENCOUNTER → 2018-06-11 | Outpatient (REF) | payer OTHER ==
[2018-06-11 13:11] LABS: BASO % 0.2 % (0.0-1.0); EOS # 0.1 10^3/uL (0.0-0.50); EOS % 1.9 % (0.0-3.0); HEMATOCRIT 41.2 % (36.0-47.0); LYMPH # 1.8 10^3/uL (1.5-4.5); LYMPH % 28.5 % (24.0-44.0); MEAN CORPUSCULAR HEMOGLOBIN 25.6 pg (27.0-33.0); MEAN CORPUSCULAR HGB CONC 31.6 g/dl (32.0-36.5); MEAN CORPUSCULAR VOLUME 81.3 fl (80.0-96.0); MONO # 0.4 10^3/uL (0.0-0.8); MONO % 6.8 % (0.0-5.0); NEUTROPHILS # 3.8 10^3/uL (1.8-7.7); NEUTROPHILS % 62.1 % (36.0-66.0); PLATELET COUNT, AUTOMATED 253 10^3/uL (150-450); RED BLOOD COUNT 5.07 10^6/uL (4.00-5.40); WHITE BLOOD COUNT 6.2 10^3/uL (4.0-10.0)
[2018-06-11 13:26] LABS: ALBUMIN 3.5 GM/DL (3.2-5.2); ALT/SGPT 16 U/L (12-78); BILIRUBIN,TOTAL 0.2 MG/DL (0.2-1.0); BLOOD UREA NITROGEN 13 MG/DL (7-18); CALCIUM LEVEL 8.5 MG/DL (8.5-10.1); CARBON DIOXIDE LEVEL 28 MEQ/L (21-32); CHLORIDE LEVEL 107 MEQ/L (98-107); CHOLESTEROL LEVEL 189 MG/DL (<200); CHOLESTEROL RISK RATIO 4.846 (<5); CREATININE FOR GFR 0.83 MG/DL (0.55-1.30); GLOMERULAR FILTRATION RATE > 60.0 (>58); GLUCOSE, FASTING 100 MG/DL (70-100); HDL CHOLESTEROL 39 MG/DL (>40); LDL CHOLESTEROL 117 MG/DL (<100); NON-HDL-C 150 MG/DL; POTASSIUM SERUM 4.3 MEQ/L (3.5-5.1); SODIUM LEVEL 140 MEQ/L (136-145); THYROID STIMULATING HORMONE 0.841 uIU/ML (0.358-3.740); TOTAL PROTEIN 7.2 GM/DL (6.4-8.2); TRIGLYCERIDES LEVEL 163 MG/DL (<150)
== END ==
LOC: M LAB REF 12:25
PROVIDERS: ATTEND Family Medicine Addiction Medicine
DX: E55.9 Vitamin D deficiency, unspecified (principal); Z86.2 Personal history of diseases of the blood and blood-forming organs and certain disorders involving the immune mechanism; R53.81 Other malaise

== ENCOUNTER → 2018-06-26 | Outpatient (REF) | payer OTHER ==
[2018-06-26 19:45] LABS: CHLAMYDIA DNA AMPLIFICATION NEGATIVE (NEGATIVE); GC DNA AMPLIFICATION NEGATIVE (NEGATIVE)
== END ==
LOC: M LAB REF 16:53
PROVIDERS: ATTEND Nurse Practitioner Family
DX: Z13.9 Encounter for screening, unspecified (principal)

== ENCOUNTER → 2018-07-05 | Outpatient (CLI) | payer OTHER ==
--- NOTE | 2018-07-05 13:34 | REP ---
LEFT SHOULDER SERIES: Three views. HISTORY: Acute pain left shoulder. FINDINGS: The left glenohumeral and acromioclavicular joints are normally aligned. Periarticular soft tissues are unremarkable. No fracture or bony erosive changes seen. Visualized left rib cage is unremarkable. IMPRESSION: Negative radiographs of the left shoulder. Electronically Signed by Dev Taylor MD 07/05/2018 01:43 P
== END ==
LOC: M LRY 12:38
PROVIDERS: ATTEND Physician Assistant
DX: M25.512 Pain in left shoulder (principal)

== ENCOUNTER → 2018-07-13 | Outpatient (REF) | payer OTHER | LOC: M LAB REF 13:39 | PROVIDERS: ATTEND Radiology Diagnostic Radiology | DX: D24.1 Benign neoplasm of right breast (principal) ==

== ENCOUNTER → 2018-07-28 | Outpatient (REF) | payer OTHER ==
[~2018-07-28] MED LIST changes: +MAGICMW SSP; +PRED20TA PO
== END ==
LOC: M SFHCLERA 12:32
PROVIDERS: ATTEND Physician Assistant
DX: J02.9 Acute pharyngitis, unspecified (principal)

== ENCOUNTER 2018-07-30 09:14 | Emergency (ER) | payer OTHER ==
[~2018-07-30] VITALS: Ht 167.6 cm; Wt 121.1 kg
[~2018-07-30 09:14] MED LIST changes: +HYDR-3715 PO; -MAGICMW SSP; -NORCOTAB PO; -PRED20TA PO
[2018-07-30 09:15] VITALS: BP 126/75
[2018-07-30] MEDS ORDERED: PRED20TA PO (09:58)
[2018-07-30] MEDS ORDERED: MAGICMW SSP (09:58)
== END 2018-07-30 10:03 | disposition home or self-care (01) ==
LOC: M ED 09:14
DX: J02.9 Acute pharyngitis, unspecified (principal); M54.31 Sciatica, right side; M25.512 Pain in left shoulder; K21.9 Gastro-esophageal reflux disease without esophagitis; F41.9 Anxiety disorder, unspecified; M51.9 Unspecified thoracic, thoracolumbar and lumbosacral intervertebral disc disorder; Z79.899 Other long term (current) drug therapy; Z88.5 Allergy status to narcotic agent; Z88.1 Allergy status to other antibiotic agents

== ENCOUNTER → 2018-08-13 | Outpatient (REF) | payer OTHER ==
[~2018-08-13] MED LIST changes: +MAGICMW SSP; +PRED20TA PO
== END ==
LOC: M LAB REF 12:25
PROVIDERS: ATTEND Family Medicine Addiction Medicine
DX: E55.9 Vitamin D deficiency, unspecified (principal)

== ENCOUNTER → 2018-08-18 | Outpatient (REF) | payer OTHER | LOC: M SFHCLERA 17:55 | PROVIDERS: ATTEND Nurse Practitioner Family | DX: J02.9 Acute pharyngitis, unspecified (principal) ==